=== PATIENT | male | born 1960 | race African-American/Black ===

== ENCOUNTER → 2020-07-21 14:01 | Outpatient (CLI) | payer BC, SELFPAY ==
--- NOTE | ~2020-07-21 | XR_ITS ---
EXAMINATION: XR knee LT min 4V, XR knee RT min 4V DATE: 07/21/2020 14:41 INDICATION: Bilateral knee pain TECHNIQUE: 1. Weight bearing anteroposterior and Hammond, sunrise, and flexed lateral views of the left knee w ere obtained. 2. Weight bearing anteroposterior and Hammond, sunrise, and flexed lateral views of the right knee were obtained COMPARISON: None. FINDINGS: No fractures. Minimal bilateral genu varum with severe joint space narrowing in the medial compartmen ts of the right knee on both the standing AP and Hammond images and moderate to severe joint space narrowing the medial compartment of the left knee. Relatively preserved joint space with small margin al osteophytes in the lateral and patellofemoral compartments of both knees. Soft tissues are unremar kable. No joint effusion/layering lipohemarthrosis identified at the left or right knee. IMPRESSION: 1. Relatively symmetric medial compartment predominant osteoarthritis of both knees, severe at the ri ght medial compartment and moderate to severe at the left medial compartment. Reviewed, dictated and finalized at location A. IMPRESSION: 1. Relatively symmetric medial compartment predominant osteoarthritis of both k nees, severe at the right medial compartment and moderate to severe at the left medial compartment.
== END ==
DX: M25.562 Pain in left knee (principal); M25.561 Pain in right knee; M17.0 Bilateral primary osteoarthritis of knee
CPT/HCPCS: 73564

== ENCOUNTER 2020-11-19 21:36 | Emergency (ER) | payer BC, SELFPAY ==
[2020-11-19 22:02] VITALS: BP 130/80; PULSE 103; RESP 18; TEMP 37.9; O2SAT 97
[2020-11-20] MEDS: ACETAMINOPHEN 325 MG TABLET 650 MG PO (02:51)
--- NOTE | 2020-11-20 03:07 | ED.FEVER ---
HPI - Fever General Chief Complaint: Fever Stated Complaint: Fever, ST Time Seen by Provider: 11/20/20 01:55 History of Present Illness HPI Narrative: Patient is a 60-year-old male who presents ER with fever. Ongoing over the last day. Associate with cough that is been going on for last week. He has sinus congestion. No loss of taste or smell. No known Covid contacts. He is vaccinated. has had an illness as well. She was never swabbed. Related Data Allergies Allergy/AdvReac Type Severity Reaction Status Date / Time No Known Allergies Allergy Verified 11/19/20 22:07 Review of Systems Constitutional: Constitutional: Reports chills and Reports fever(s) ENT: Denies dysphagia, Reports nasal congestion and Reports sore throat Respiratory: Respiratory: Denies chest congestion, Reports cough, Denies dyspnea and Denies wheezing Gastrointestinal: Gastrointestinal: Denies abdominal pain, Denies nausea and Denies vomiting PMFSH Past Medical History Medical History (Updated 11/20/20 @ 03:11 by Nolberto Toth MD) Healthy adult male Surgical History Surgical History (Updated 11/20/20 @ 03:09 by Nolberto Toth MD) No history of previous surgery Exam Narrative: GENERAL: Well-appearing, well-nourished, and in no acute distress. HEAD: Normocephalic, atraumatic. ENT: Mucous membranes moist. Normal-appearing posterior oropharynx without hypertrophy or exudate, uvula midline and nonedematous. NECK: Supple. CHEST: Clear to auscultation. No respiratory distress. HEART: Regular rate and rhythm. Normal peripheral pulses. NEURO: Alert and oriented x3. PSYCH: Normal mood and affect. 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 Swab for Covid. Self isolate at home. Vital Signs Vital signs: Vital Signs Temperature 100.3 F H 11/19/20 22:02 Pulse Rate 103 H 11/19/20 22:02 Respiratory Rate 18 11/19/20 22:02 Blood Pressure 130/80 11/19/20 22:02 Pulse Oximetry 97 11/19/20 22:02 Temperature 100.3 F H 11/19/20 22:02 Pulse Rate 103 H 11/19/20 22:02 Respiratory Rate 18 11/19/20 22:02 Blood Pressure 130/80 11/19/20 22:02 Pulse Oximetry 97 11/19/20 22:02 MDM - Fever Lab Data Labs: Lab Results 11/20/20 Range/Units 02:42 SARS-CoV-2 RNA (RT-PCR) Pending Strep Screen Presumptive Negative *(Reference Range: Negative)* Discharge Plan Discharge Clinical Impression: Viral infection, Person under investigation for COVID-19 Patient Disposition: Home, Self-Care Condition: Stable Instructions: Viral Syndrome (ED) Additional Instructions: Home return to the ER if you cannot keep down food or water, you have chest pain or shortness of breath, you lose consciousness. Your strep test was negative. You were swabbed for Covid and you should self isolate at home until you receive a negative test. Take Tylenol or ibuprofen as needed for fever. Use Mucinex and Flonase for sinus congestion. Prescriptions: New pseudoephedrine-guaifenesin [Mucus D] 60-600 mg tablet extended release 12 hr 1 tablet PO BID PRN (Reason: cold symptoms) Qty: 14 RF: 0 fluticasone propionate [Flonase Allergy Relief] 50 mcg/actuation spray,suspension 1 spray intranasal DAILY Qty: 16 RF: 0 Follow-up/Referrals: Dean Florez MD [Physician] - 1 Week UNKNOWN,DOCTOR [Primary Care Provider] -
[2020-11-20 03:57] VITALS: BP 115/76; PULSE 83; RESP 18; TEMP 37.2; O2SAT 95
[2020-11-20 17:27] LABS: SARS-CoV-2 RNA PCR Negative
== END 2020-11-20 03:58 | disposition home or self-care (01) ==
PROVIDERS: Emergency Provider Emergency Medicine
DX: B34.9 Viral infection, unspecified (principal); Z20.822 Contact with and (suspected) exposure to COVID-19
CPT/HCPCS: 87081; 87880; 99283; A9270; C9803; U0003; U0005

== ENCOUNTER → 2020-12-02 11:51 | Outpatient (CLI) | payer BC, SELFPAY ==
--- NOTE | ~2020-12-02 | XR_ITS ---
EXAMINATION: XR wrist RT min 3V DATE: 12/02/2020 12:00 INDICATION: Right wrist pain TECHNIQUE: Posteroanterior, ulnar deviation, oblique, and lateral views of the right wrist were obtai rayna. COMPARISON: none FINDINGS: Bone alignment is normal. No fracture. Mild polyarticular osteoarthritis involving the majority of th e joints at the right wrist and visualized hand. There are a few subarticular lucencies including at the distal ulna, the proximal tip of the hamate and the ulnar side of the proximal pole of the scapho id which could represent degenerative subchondral cysts or erosions. Soft tissues are unremarkable. IMPRESSION: 1. Mild polyarticular osteoarthritis at the right hand and wrist with a few subarticular lucencies mo st likely degenerative subchondral cysts although differential would include erosion such as in the s etting of either crystalline arthropathy such as gout or other inflammatory arthritis. Reviewed, dictated and finalized at location A. IMPRESSION: 1. Mild polyarticular osteoarthritis at the right hand and wrist with a few sub articular lucencies most likely degenerative subchondral cysts although differe ntial would include erosion such as in the setting of either crystalline arthro norma such as gout or other inflammatory arthritis.
== END ==
PROVIDERS: PCP Internal Medicine Gastroenterology; Visit Provider Internal Medicine Gastroenterology
DX: M19.031 Primary osteoarthritis, right wrist (principal)
CPT/HCPCS: 73110

== ENCOUNTER → 2020-12-11 13:25 | Outpatient (CLI) | payer BC, SELFPAY ==
--- NOTE | ~2020-12-11 | XR_ITS ---
EXAMINATION: XR chest 2V 12/11/2020 13:40 INDICATION: Cough and shortness of breath. PROCEDURE: 2 view chest COMPARISON: No prior studies for comparison. FINDINGS: The lungs are clear. The cardiomediastinal silhouette is within normal limits. There are no pleural effusions. There is no pneumothorax suspected. IMPRESSION: 1: NO ACUTE CARDIOPULMONARY DISEASE. Reviewed, dictated and finalized at location B.
== END ==
PROVIDERS: PCP Internal Medicine Gastroenterology; Visit Provider Internal Medicine Gastroenterology
DX: R05.9 Cough, unspecified (principal); R06.02 Shortness of breath
CPT/HCPCS: 71046

== ENCOUNTER → 2021-01-26 10:09 | Outpatient (CLI) | payer BC, SELFPAY ==
--- NOTE | ~2021-01-26 | US_ITS ---
US renal BI 01/26/2021 10:42 Procedure: Realtime transabdominal ultrasound of the kidneys and bladder. Indication: Chronic kidney disease Comparison: No prior studies for comparison. Findings: Renal echotexture is normal bilaterally without hydronephrosis, contour deforming mass or r enal calculus. The right kidney measures 8.3 cm cm and left kidney measures 10.1 cm cm. There are sma ll right renal cysts, largest measuring 12 mm. Bladder within normal limits. Impression: 1: Right renal cyst measuring up to 12 mm. Otherwise, unremarkable renal ultrasound. Reviewed, dictated and finalized at location A. [employer] Impression: 1: Right renal cyst measuring up to 12 mm. Otherwise, unremarkable renal ultras ound.
== END ==
DX: I12.9 Hypertensive chronic kidney disease with stage 1 through stage 4 chronic kidney disease, or unspecified chronic kidney disease (principal); N18.31 Chronic kidney disease, stage 3a; N28.1 Cyst of kidney, acquired; N17.9 Acute kidney failure, unspecified; E55.9 Vitamin D deficiency, unspecified; R80.9 Proteinuria, unspecified
CPT/HCPCS: 76775

== ENCOUNTER 2021-05-30 15:22 | Outpatient (CLI) | payer BC, SELFPAY ==
--- NOTE | ~2021-05-30 | XR_ITS ---
EXAM: XR toe 1st LT min 2V HISTORY: GOUT COMPARISON: None available FINDINGS: Normal mineralization. Soft tissue swelling over the first MCP. Faint amorphous soft tissu e hyperdensity adjacent to the first MCP may represent early calcification. No fracture or dislocatio n. Mild degenerative changes at the first MCP. No abnormal soft tissue calcification or erosion. IMPRESSION: First MCP soft tissue swelling and possible soft tissue calcification which would be supportive but n ot diagnostic of diagnosis of gout. Reviewed, dictated and finalized at location K. IMPRESSION: First MCP soft tissue swelling and possible soft tissue calcification which wou ld be supportive but not diagnostic of diagnosis of gout.
== END 2021-05-30 15:23 ==
LOC: MICIMG 15:24
PROVIDERS: PCP Internal Medicine Gastroenterology; Visit Provider Internal Medicine Gastroenterology
DX: M10.9 Gout, unspecified (principal); M79.89 Other specified soft tissue disorders
CPT/HCPCS: 73660

== ENCOUNTER 2021-07-24 16:05 | Outpatient (CLI) | payer BC, SELFPAY ==
--- NOTE | ~2021-07-24 | XR_ITS ---
EXAMINATION: XR wrist RT min 3V INDICATION: Right wrist pain and swelling TECHNIQUE: Four views of the right wrist are obtained. COMPARISON: 12/02/2020 FINDINGS: Bone alignment is normal. There is no fracture. Polyarticular osteoarthritis persists witho ut significant change. The soft tissues are unremarkable. IMPRESSION: 1. Mild polyarticular osteoarthritis without significant change. Reviewed, dictated and finalized at location F.
== END 2021-07-24 16:06 ==
PROVIDERS: PCP Internal Medicine Gastroenterology; Visit Provider Internal Medicine Gastroenterology
DX: R52 Pain, unspecified (principal); R06.9 Unspecified abnormalities of breathing
CPT/HCPCS: 73110

== ENCOUNTER 2021-09-09 00:16 | Emergency (ER) | payer BC, SELFPAY ==
[2021-09-09 00:18] VITALS: BP 191/97; PULSE 71; RESP 18; TEMP 36.6; O2SAT 100
[2021-09-09 00:32] VITALS: PULSE 80; RESP 13; O2SAT 99
[2021-09-09 00:34] VITALS: BP 176/102; PULSE 69; RESP 13; O2SAT 100
[2021-09-09 00:53] VITALS: PULSE 68; RESP 20; O2SAT 100
[2021-09-09 01:03] VITALS: PULSE 69; RESP 24; O2SAT 100
--- NOTE | 2021-09-09 01:06 | ED.GENADULT ---
HPI - General Adult General Chief complaint: Recheck/Abnormal Lab/Rx Stated complaint: htn 185/108 Time Seen by Provider: 09/09/21 00:46 History of Present Illness HPI narrative: Patient is a 61-year-old gentleman who presents to the emergency department with chief complaint of hypertension. Patient reports that he checked his blood pressure this evening and it was elevated. The patient denies chest pain denies shortness of breath denies focal neurological deficit denies headache. The patient states that he was concerned because his blood pressure has been fairly uncontrolled lately and decided to come to the emergency department. Upon arrival to the emergency department patient states he feels fine and has no complaints other than his numeric value of his blood pressure Related Data Home Medications Medication Instructions Recorded Confirmed allopurinol 300 mg tablet 300 mg PO DAILY 09/09/21 09/09/21 aspirin 81 mg PO DAILY 09/09/21 09/09/21 indomethacin 25 mg capsule 50 mg PO TID 09/09/21 09/09/21 losartan 100 tablet 09/09/21 mg-hydrochlorothiazide 25 mg tablet metoprolol tartrate 50 mg tablet tablet 09/09/21 pantoprazole 40 mg tablet,delayed 40 mg PO DAILY 09/09/21 09/09/21 release tamsulosin 0.4 mg capsule 1 cap PO DAILY 09/09/21 09/09/21 tramadol 50 mg tablet 50 mg PO PRN PRN Pain 09/09/21 09/09/21 Allergies Allergy/AdvReac Type Severity Reaction Status Date / Time No Known Allergies Allergy Verified 09/09/21 00:24 Review of Systems Review of Systems: A 10 system review of systems was completed on the patient and is negative except for what is stated in the HPI. Nursing and ancillary documentation was reviewed. [facility] Past Medical History Medical History Healthy adult male Surgical History Surgical History No history of previous surgery Exam Narrative: GENERAL: Well-appearing, well-nourished, and in no acute distress. HEAD: Normocephalic, atraumatic. EYES: PERRLA and EOMI. ENT: Nares clear, no rhinorrhea or epistaxis. Mucous membranes moist. NECK: Supple. CHEST: Clear to auscultation. No respiratory distress. HEART: Regular rate and rhythm. No murmur heard. Normal peripheral pulses. ABDOMEN: Soft, nontender, nondistended, normal active bowel sounds. EXTREMITIES: Normal range of motion. No edema. SKIN: Warm, dry, no rash. NEURO: No focal deficits. Alert and oriented x3. PSYCH: Normal mood and affect. Course Course Emergency Course: At this time the patient is completely asymptomatic in the emergency department and showing no signs of hypertensive crisis. Patient's diastolic is below 100 at this time the patient does not warrant emergent laboratory testing and was instructed to keep a daily blood pressure log and follow-up with his primary care physician Vital Signs Vital signs: Vital Signs Temperature 36.6 C 09/09/21 00:18 Pulse Rate 71 09/09/21 00:18 Respiratory Rate 18 09/09/21 00:18 Blood Pressure 191/97 H 09/09/21 00:18 Pulse Oximetry 100 09/09/21 00:18 Oxygen Delivery Room Air 09/09/21 00:18 Temperature 36.6 C 09/09/21 00:18 Pulse Rate 71 09/09/21 00:18 Respiratory Rate 18 09/09/21 00:18 Blood Pressure 191/97 H 09/09/21 00:18 Pulse Oximetry 100 09/09/21 00:18 Oxygen Delivery Room Air 09/09/21 00:18 Medical Decision Making Vital Signs Vital Signs: Vital Signs Temperature 36.6 C 09/09/21 00:18 Pulse Rate 71 09/09/21 00:18 Respiratory Rate 18 09/09/21 00:18 Blood Pressure 191/97 H 09/09/21 00:18 Pulse Oximetry 100 09/09/21 00:18 Oxygen Delivery Room Air 09/09/21 00:18 Temperature 36.6 C 09/09/21 00:18 Pulse Rate 71 09/09/21 00:18 Respiratory Rate 18 09/09/21 00:18 Blood Pressure 191/97 H 09/09/21 00:18 Pulse Oximetry 100 09/09/21 00:18 Oxygen Delivery Room Air
[2021-09-09 01:26] VITALS: BP 163/109; PULSE 65; RESP 15; O2SAT 99
== END 2021-09-09 01:35 | disposition home or self-care (01) ==
LOC: ANHED 01:20
PROVIDERS: Emergency Provider Emergency Medicine; PCP Internal Medicine Gastroenterology
DX: I10 Essential (primary) hypertension (principal); Z79.82 Long term (current) use of aspirin
CPT/HCPCS: 99281

== ENCOUNTER 2022-09-23 17:58 | Observation (INO) | payer OTHER, SELFPAY ==
--- NOTE | ~2022-09-23 | CT_ITS ---
EXAMINATION: CT brain wo con DATE: 09/23/2022 21:58 INDICATION: Dizziness, nausea vomiting . TECHNIQUE: Computed tomography (CT) of the head was performed without intravenous contrast. The mA wa s adjusted according to patient size. Iterative reconstruction technique was employed. The dose-lengt h product was 605.33 mGy-cm. COMPARISON: None. FINDINGS: No acute intracranial hemorrhage or extra-axial fluid collection. No hydrocephalus, mass, or herniation. No acute ischemic infarct. Unremarkable dural venous sinus attenuation. No acute osseous abnormality. The aerated spaces are clear. Mild atrophy and chronic white matter change. Atherosclerotic intracranial calcification. IMPRESSION: No acute intracranial process. Reviewed, dictated and finalized at location K.
--- NOTE | ~2022-09-23 | MR_ITS ---
EXAMINATION: MR brain/brain stem wo/w con DATE: 09/24/2022 11:52 INDICATION: Dizziness. Nystagmus. TECHNIQUE: Magnetic resonance imaging (MRI) of the brain and brainstem was performed without and with 20 mL MultiHance intravenous contrast. COMPARISON: Head CT 09/23/2022 FINDINGS: There are scattered areas of nonspecific increased T2-weighted signal intensity in the cere bral white matter. There is no intracranial hemorrhage, acute infarction, or abnormal intracranial ma ss lesion. The ventricles are normal in size. The orbits are normal. The paranasal sinuses are clear. The mastoid air cells are normal. IMPRESSION: 1. Mild nonspecific cerebral white matter disease, which likely represents chronic small vessel ische jose f disease. Reviewed, dictated and finalized at location A. IMPRESSION: 1. 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
--- NOTE | ~2022-09-23 | XR_ITS ---
EXAMINATION: XR chest 2V DATE: 09/25/2022 13:02 INDICATION: Shortness of breath. TECHNIQUE: Frontal and lateral views of the chest were obtained. COMPARISON: Chest single view 09/23/2022, 12/11/2020 FINDINGS: There are airspace opacities at lung base. A calcified right lung nodule is consistent with old granulomatous disease. No pleural effusion or pneumothorax. The heart size is normal. The brachi ocephalic vessels are tortuous. IMPRESSION: 1. Worsened airspace opacities at left lung base, consistent with atelectasis versus pneumonia. Reviewed, dictated and finalized at location B. IMPRESSION: 1. Worsened airspace opacities at left lung base, consistent with atelectasis v ersus pneumonia.
--- NOTE | ~2022-09-23 | XR_ITS ---
EXAMINATION: XR chest 1V Exam Date/Time: 09/23/2022 21:57 CDT HISTORY: Weakness- DIZZINESS Comparison: 12/11/2020. RESULT: Lines, tubes, and devices: None. Lungs and pleura: Patient is rotated slightly to the right. Streaky left basilar subsegmental airspa ce disease. Calcified right upper lung granuloma. Cardiomediastinal silhouette: Stable. Other: No acute osseous or upper abdominal finding. IMPRESSION: Subsegmental left basilar atelectasis/consolidation. Reviewed, dictated and finalized at location K.
--- NOTE | ~2022-09-23 | US_ITS ---
EXAMINATION: US carotid duplex BI DATE: 09/24/2022 11:32 INDICATION: Dizziness. TECHNIQUE: Grayscale, color Doppler, and pulsed Doppler images of the cervical carotid arteries were obtained. The degree of vessel stenosis is placed in one of the following categories: normal, <50%, 5 0-69%, >=70% but less than near-occlusion, near-occlusion, or total occlusion. Note that percent sten osis relative to normal distal artery lumen diameter is indirectly measured from velocity measurement s as described by Jhony, et al. Radiology 2003; 229:340-346. COMPARISON: None. FINDINGS: RIGHT: The right common carotid artery (CCA) peak systolic velocity (PSV) is 67 cm/s. The right internal car otid artery (ICA) PSV is 69 cm/s. The right ICA end-diastolic velocity (EDV) is 21 cm/s. The right IC A/CCA PSV ratio is 1.0. Grayscale and color Doppler images yield an estimate of <50% diameter reducti on from plaque in the ICA. There is antegrade flow in the right vertebral artery. LEFT: The left CCA PSV is 87 cm/s. The left ICA PSV is 91 cm/s. The left ICA EDV is 24 cm/s. The left ICA/C CA PSV ratio is 1.0. Grayscale and color Doppler images yield an estimate of <50% diameter reduction from plaque in the ICA. There is antegrade flow in the left vertebral artery. IMPRESSION: 1. <50% stenosis in the right internal carotid artery. 2. <50% stenosis in the left internal carotid artery. Reviewed, dictated and finalized at location A.
[2022-09-23 18:10] VITALS: BP 180/79; PULSE 72; RESP 16; TEMP 36.4; O2SAT 96
--- NOTE | 2022-09-23 18:11 | ECG_ITS ---
Measurements Intervals [place] Rate: 63 P: 29 AL: 223 QRS: -19 QRSD: 90 T: 28 QT: 430 QTc: 442 Interpretive Statements SINUS RHYTHM WITH FIRST DEGREE AV BLOCK POSSIBLE LEFT ATRIAL ENLARGEMENT LEFT VENTRICULAR HYPERTROPHY NONSPECIFIC T-WAVE ABNORMALITY- ANTERIOR LEADS BASELINE ARTIFACT- I, II, III, AVR, AVL BORDERLINE ECG NO PREVIOUS ECG AVAILABLE FOR COMPARISON Electronically Signed On 09-23-2022 21:25:10 CDT by Godfrey Multani D.O.
[2022-09-23 20:48] VITALS: BP 190/94; PULSE 80; RESP 18; TEMP 36.5; O2SAT 97
[2022-09-23 21:08] LABS: Appearance Urine Clear (Clear); Bacteria Urine None Seen /hpf; Bilirubin Urine Negative (Negative); Blood Urine Negative (Negative); Color Urine Yellow (Yellow); Glucose Urine UA Negative (Negative); Ketones Urine Negative (Negative); Leukocyte Esterase Ur 2+ LEU/UL (Negative); Nitrate Urine Negative (Negative); Non Pathogenic Casts 0-2; Protein Urine 2+ mg/dL (Negative); RBC Urine 0-2 /hpf (0-2); Specific Grav Ur 1.015 (1.001-1.035); Squamous Epithelial Cell Urine None seen /hpf (Few); WBC Urine 51-100 /hpf; pH Urine 7.5 (5.0-9.0)
[2022-09-23 21:13] LABS: Add Urine Microscopic? YES
[2022-09-23 21:32] LABS: Basophils Percent Auto 0.2 % (0.2-1.2); Eosinophils Percent Auto 0.2 % (0-4.4); Hematocrit 39.9 % (42.0-52.0); Hemoglobin 12.9 g/dL (14.0-18.0); Immature Granulocyte Absolute 0.03 K/mm3 (0.00-0.031); Immature Granulocyte Percent A 0.3 % (0-0.5); Lymphocytes Absolute Auto 1.24 K/mm3 (0.9-3.2); Mean Corpuscular HGB Conc 32.3 g/dl (32-36); Mean Corpuscular Hemoglobin 32.4 pg (26-34); Mean Corpuscular Volume 100.3 fl (80-100); Mean Platelet Volume 10.7 fl (7.4-10.4); Monocytes Absolute Auto 0.5 K/mm3 (0.1-0.6); Monocytes Percent Auto 5.2 % (2.6-8.5); Neutrophils Absolute Auto 7.8 K/mm3 (1.3-6.7); Neutrophils Percent Auto 81.1 % (45.5-73.1); Platelet Count Result 156 k/mm3 (150-375); Red Blood Count 3.98 M/mm3 (4.6-6.20); Red Cell Distribution Width 13.5 % (11.5-14.5); White Blood Count 9.6 K/mm3 (4.5-10.0)
[2022-09-23] MEDS: PROCHLORPERAZINE EDISYLATE 10 MG/2 ML VIAL IV PUSH (21:32)
[2022-09-23] MEDS: SODIUM CHLORIDE 0.9% IV 1,000 ML 999 ML IV CONT (21:32)
[2022-09-23] MEDS: diphenhydrAMINE HCl INJ 50 MG/ML VIAL 25 MG IV PUSH (21:32)
[2022-09-23 21:44] LABS: Alanine Aminotransferase 44 U/L (6-50); Albumin Level 4.6 g/dL (3.5-5.1); Alkaline Phosphatase 66 U/L (38-126); Anion Gap 4 mmol/L (8-16); Aspartate Amino Transferase 45 U/L (17-59); Bilirubin,Total 0.6 mg/dL (0.2-1.3); Blood Urea Nitrogen 17 mg/dL (9-20); Calcium 9.5 mg/dL (8.4-10.2); Carbon Dioxide 32 mmol/L (22-30); Chloride 99 mmol/L (98-107); Estimated CRCL calculation 76 ml/min; Estimated Glomerular Filt Rate > 60; Glucose 139 mg/dL (65-110); Lipase 118 U/L (23-300); Magnesium 1.2 mg/dL (1.6-2.3); Potassium 3.8 mmol/L (3.4-5.0); Sodium 135 mmol/L (137-145)
[2022-09-23 21:45] LABS: Lactic Acid Reflex 1.6 mmol/L (0.7-2.0)
[2022-09-23 21:56] LABS: Troponin I < 0.012 ng/mL (0.000-0.034)
[2022-09-23 23:15] VITALS: BP 191/99; PULSE 77; RESP 12; O2SAT 98
[2022-09-23] MEDS: MAGNESIUM SULF 2 GM/WATER 50ML 2 GM/50 ML BAG IVPB (23:15)
[2022-09-24] VITALS (19 sets, daily range): BP systolic 120–210; BP diastolic 60–114; PULSE 72–109; RESP 12–20; TEMP 36.3–36.9; O2SAT 96–100
[2022-09-24] MEDS: diazePAM INJ (*CRX) 10 MG/2 ML SYRINGE 5 MG IV PUSH (00:26)
[2022-09-24] MEDS: MECLIZINE HCL 25 MG TABLET PO (00:27)
[2022-09-24] MEDS: hydrALAZINE HCL 20 MG/ML VIAL 10 MG IV PUSH ×4 (00:27→12:14)
--- NOTE | 2022-09-24 01:30 | ED.GENADULT ---
HPI - General Adult General Chief complaint: Dizziness Stated complaint: DIZZINESS N/V SINCE TODAY Time Seen by Provider: 09/23/22 21:08 History of Present Illness HPI narrative: Patient is 62-year-old gentleman who presents the emergency department chief complaint of dizziness and nausea and vomiting. Patient reports that around 3 PM today he started having sudden onset of nausea vomiting and dizziness. Patient states he feels as though the room is spinning and reports that when he looks at things they are moving. The patient reports no chest pain denies weakness in his arms or legs. Related Data Home Medications Medication Instructions Recorded Confirmed allopurinol 300 mg tablet 300 mg PO DAILY 09/09/21 09/09/21 aspirin 81 mg PO DAILY 09/09/21 09/09/21 indomethacin 25 mg capsule 50 mg PO TID 09/09/21 09/09/21 losartan 100 1 tablet PO DAILY 09/09/21 09/09/21 mg-hydrochlorothiazide 25 mg tablet metoprolol tartrate 50 mg tablet 50 mg PO DAILY 09/09/21 09/09/21 pantoprazole 40 mg tablet,delayed 40 mg PO DAILY 09/09/21 09/09/21 release tamsulosin 0.4 mg capsule 1 cap PO DAILY 09/09/21 09/09/21 tramadol 50 mg tablet 50 mg PO PRN PRN Pain 09/09/21 09/09/21 Allergies Allergy/AdvReac Type Severity Reaction Status Date / Time No Known Allergies Allergy Verified 09/09/21 00:24 Review of Systems Review of Systems: A 10 system review of systems was completed on the patient and is negative except for what is stated in the HPI. Nursing and ancillary documentation was reviewed. [facility] Past Medical History Medical History Healthy adult male Surgical History Surgical History No history of previous surgery Exam Narrative: GENERAL: Well-appearing, well-nourished, and in no acute distress. HEAD: Normocephalic, atraumatic. EYES: PERRLA and EOMI. horizontal nystagmus present ENT: Nares clear, no rhinorrhea or epistaxis. Mucous membranes moist. NECK: Supple. CHEST: Clear to auscultation. No respiratory distress. HEART: Regular rate and rhythm. No murmur heard. Normal peripheral pulses. ABDOMEN: Soft, nontender, nondistended, normal active bowel sounds. EXTREMITIES: Normal range of motion. No edema. SKIN: Warm, dry, no rash. NEURO: No focal deficits. Alert and oriented x3. Horizontal nystagmus present on ocular exam PSYCH: Normal mood and affect. Course Vital Signs Vital signs: Vital Signs Temperature 36.4 C 09/23/22 18:10 Pulse Rate 72 09/23/22 18:10 Respiratory Rate 16 09/23/22 18:10 Blood Pressure 180/79 H 09/23/22 18:10 Pulse Oximetry 96 09/23/22 18:10 Temperature 36.5 C 09/23/22 20:48 Pulse Rate 80 09/24/22 00:42 Respiratory Rate 15 09/24/22 00:42 Blood Pressure 198/113 H 09/24/22 00:42 Pulse Oximetry 98 09/24/22 00:42 Oxygen Delivery Room Air 09/23/22 20:48 Medical Decision Making [facility] Narrative Medical decision making narrative: Differential diagnosis includes electrolyte abnormality, UTI, infection, CVA, vertigo CT head showed no evidence of acute abnormality Chest x-ray showed atelectasis Laboratory studies were obtained which showed a normal CBC magnesium was low at 1.2 the patient had evidence of a UTI with 2+ leukocyte Estrace and 51 to 150 cc in the urine. Patient was started on Rocephin for the UTI Patient is still continued to have horizontal nystagmus and is still having symptoms. The case was discussed with the hospitalist the patient was admitted for further care Vital Signs Vital Signs: Vital Signs Temperature 36.4 C 09/23/22 18:10 Pulse Rate 72 09/23/22 18:10 Respiratory Rate 16 09/23/22 18:10 Blood Pressure 180/79 H 09/23/22 18:10 Pulse Oximetry 96 09/23/22 18:10 Temperature 36.5 C 09/23/22 20:48 Pulse Rate 80 09/24/22 00:42 Respiratory Rate 15 09/24/22 00:42 Blood
--- NOTE | 2022-09-24 02:01 | PM.IMHP ---
H&P: HPI History of Present Illness Date/Time: 09/24/22 02:01 Chief Complaint: Dizziness Narrative: This is a 62-year-old male with past medical history significant for hypertension, gout, benign prostatic hyperplasia. Patient was at his work when he failed add easy coma lightheaded, had nausea, vomiting his came to get him on when home through the course of today patient progressed to feel worse on have a new lead revision on ice will on a will to focal is in emergency room patient was found to have a blood pressure systolic in the 200s. Patient states that he took his blood pressure medication at home 1:00 p.m. today, has had chills, pain or burning with urination for the last 2 weeks or so, patient had surgery for benign prostatic hyperplasia in June of this year. Preliminary workup was also significant for you for urine analysis showed numerous WBCs present, a CT of the head was reported as: EXAMINATION: CT brain wo con DATE: 09/23/2022 21:58 INDICATION: Dizziness, nausea vomiting . TECHNIQUE: Computed tomography (CT) of the head was performed without intravenous contrast. The mA was adjusted according to patient size. Iterative reconstruction technique was employed. The dose-length product was 605.33 mGy-cm. COMPARISON: None. FINDINGS: No acute intracranial hemorrhage or extra-axial fluid collection. No hydrocephalus, mass, or herniation. No acute ischemic infarct. Unremarkable dural venous sinus attenuation. No acute osseous abnormality. The? aerated spaces are clear. Mild atrophy and chronic white matter change. Atherosclerotic intracranial calcification. IMPRESSION:? No acute intracranial process. EXAMINATION:? XR chest 1V Exam Date/Time:? 09/23/2022 21:57 CDT HISTORY: Weakness- DIZZINESS ? Comparison:? 12/11/2020. RESULT: Lines, tubes, and devices:? None. Lungs and pleura:? Patient is rotated slightly to the right. Streaky left basilar subsegmental airspace disease. Calcified right upper lung granuloma. Cardiomediastinal silhouette:? Stable. Other:? No acute osseous or upper abdominal finding. ? IMPRESSION: Subsegmental left basilar atelectasis/consolidation. Review of Systems Review of Systems: Blurry vision coma dizziness, lightheadedness, nausea, vomiting, chills, pain or burning with urination Constitutional: Constitutional: Reports chills, Denies fatigue, Denies fever(s), Denies frequent falls, Denies night sweats and Denies poor appetite Eyes: Eyes: Reports blurry vision ENT: Denies dysphagia, Reports vertigo, Reports dizziness, Denies nasal congestion, Denies nasal discharge, Denies nasal obstruction and Denies odynophagia Cardiovascular: Cardiovascular: Denies chest pain at rest, Denies pedal edema, Denies leg edema, Reports lightheadedness, Denies radiating jaw, neck or arm pain, Denies palpitations and Denies dyspnea Respiratory: Respiratory: Denies chest congestion, Denies cough, Denies excessive phlegm production and Denies dyspnea on exertion Gastrointestinal: Gastrointestinal: Denies abdominal pain, Reports nausea and Reports vomiting Genitourinary: Genitourinary: Reports dysuria Musculoskeletal: Musculoskeletal: Denies back pain and Denies myalgias Integumentary/Breasts: Skin/Breast: Denies rash Neurologic: Reports confusion, Reports vertigo, Reports dizziness, Denies focal weakness and Denies Sensory deficit (Neuro) Psychiatric: Psychiatric: Reports no additional psychiatric complaints and Reports as per HPI Endocrine: Endocrine: Denies cold intolerance, Denies excessive sweating, Denies fatigue, Denies heat intolerance, Denies polyphagia, Denies polyuria and Denies palpitations Hematologic/Lymphatic: Hematologic/Lymphatic: Reports no additional hematologic/lymphatic complaints and Reports as per HPI Allergic/Immunologic: Allergic/Immunologic: Reports no additional allergic/immunologic complaints and Reports as per HPI [facility] Past Medical History Me
[2022-09-24] MEDS: MAGNESIUM SULFATE 3GM/D5W100ML 3 GM/100 ML BAG IVPB (03:30)
[2022-09-24] MEDS: LOSARTAN POTASSIUM 100 MG TABLET PO (08:43)
[2022-09-24] MEDS: ACETAMINOPHEN 325 MG TABLET 650 MG PO (12:13)
[2022-09-24] MEDS: AZITHROMYCIN 250 MG TABLET 500 MG PO (12:13)
[2022-09-25] VITALS (12 sets, daily range): BP systolic 150–205; BP diastolic 68–94; PULSE 68–99; RESP 18–20; TEMP 36.5–37.2; O2SAT 97–100
[2022-09-25 05:04] LABS: Basophils Percent Auto 0.1 % (0.2-1.2); Eosinophils Absolute Auto 0.1 K/mm3 (0-0.3); Eosinophils Percent Auto 1.5 % (0-4.4); Hematocrit 40.2 % (42.0-52.0); Hemoglobin 13.4 g/dL (14.0-18.0); Immature Granulocyte Absolute 0.03 K/mm3 (0.00-0.031); Immature Granulocyte Percent A 0.4 % (0-0.5); Lymphocytes Absolute Auto 1.91 K/mm3 (0.9-3.2); Lymphocytes Percent Auto 23.9 % (18.3-44.2); Mean Corpuscular HGB Conc 33.3 g/dl (32-36); Mean Corpuscular Hemoglobin 32.8 pg (26-34); Mean Corpuscular Volume 98.3 fl (80-100); Monocytes Absolute Auto 0.8 K/mm3 (0.1-0.6); Monocytes Percent Auto 9.4 % (2.6-8.5); Neutrophils Absolute Auto 5.2 K/mm3 (1.3-6.7); Neutrophils Percent Auto 64.7 % (45.5-73.1); Platelet Count Result 172 k/mm3 (150-375); Red Blood Count 4.09 M/mm3 (4.6-6.20); Red Cell Distribution Width 13.7 % (11.5-14.5)
[2022-09-25 05:16] LABS: Potassium 3.5 mmol/L (3.4-5.0)
[2022-09-25 05:24] LABS: Anion Gap 5 mmol/L (8-16); Blood Urea Nitrogen 17 mg/dL (9-20); Calcium 9.2 mg/dL (8.4-10.2); Carbon Dioxide 29 mmol/L (22-30); Chloride 99 mmol/L (98-107); Estimated CRCL calculation 76 ml/min; Estimated Glomerular Filt Rate > 60; Glucose 103 mg/dL (65-110); Sodium 133 mmol/L (137-145)
--- NOTE | 2022-09-25 06:00 | ECHO_ITS ---
Patient Info Name: Anish Adams Age: 62 years : 1960 Gender: Male Ht: 65 in Wt: 240 lbs BSA: 2.29 m2 HR: 74 bpm BP: 159 / 78 mmHg Heart Rhythm: Sinus Rhythm Technical Quality: Good Exam Date: 09/25/2022 11:33 AM Exam Location: [facility] Patient Status: Outpatient Admit Date: 09/24/2022 Staff Ordering Physician: Judson Go MD Bookkeeping Teacher: Gustabo Headley RDCS Attending Provider: Meagan Lock MD Referring Physician: Abbi JOHSNON; Exam Type: CA echo doppler color flow Study Info Indications - dizziness Complete two-dimensional, color flow and Doppler transthoracic echocardiogram is performed. Summary 1. Complete two-dimensional, color flow and Doppler transthoracic echocardiogram is performed. 2. Normal left ventricular size with moderate concentric hypertrophy and a degree of asymmetric septal hypertrophy measuring 1.8 cm. Good systolic function of all segments with ejection fraction 60-65%. Grade 2 diastolic dysfunction is noted. No evidence of outflow tract obstruction. 3. Left atrial chamber dimension is moderately enlarged. 4. Moderate aortic valve sclerosis without stenosis. 5. Mild aortic insufficiency. 6. Calcified aortic root. 7. Normal sinus rhythm. Left Ventricle Left ventricular chamber dimension is normal. Left ventricular systolic function is normal, estimated at 60-65%. There is moderately increased left ventricular wall thickness. Left ventricular septal wall motion is normal. The left ventricular diastolic function is grade II diastolic dysfunction. Right Ventricle Right ventricular chamber dimension is normal. Right ventricular systolic function is normal. Left Atria Left atrial chamber dimension is moderately enlarged. Right Atria Right atrial chamber dimension is normal. Aortic Valve The aortic valve is trileaflet. There is moderate aortic valve sclerosis. There is no aortic valve stenosis. There is mild aortic valve regurgitation. Pulmonic Valve The pulmonic valve is normal. There is no pulmonic valve stenosis. There is trace pulmonic regurgitation. Mitral Valve The mitral valve has normal leaflets. There is no mitral valve stenosis. There is no mitral valve regurgitation. Tricuspid Valve The tricuspid valve leaflets are normal. There is no significant tricuspid valve stenosis. There is trace tricuspid valve regurgitation. No pulmonary hypertension, estimated pulmonary arterial systolic pressure is 12 mmHg. Pericardium/Pleural The pericardium appears normal. There is no pericardial effusion. Inferior Vena Cava Normal inferior vena cava with >50% collapse upon inspiration consistent with Empty right atrial pressure, 10 mmHg. Aorta The aortic root size at the sinus of Valsalva is normal. The prox ascending aorta size is normal. There is mild aortic atherosclerosis. Left Ventricular Outflow Tract Name Value Normal LVOT 2D LVOT Diameter 2.1 cm LVOT Doppler LVOT Peak Gradient 4 mmHg LVOT Mean Gradient 2 mmHg LVOT VTI 24 cm LVOT VTI/AV VTI Ratio 0.9 LVOT Stroke Volume
[2022-09-25] MEDS: ASPIRIN 81 MG CHEWABLE TABLET PO (10:06)
[2022-09-25] MEDS: allopurinoL 300 MG TABLET PO (10:06)
[2022-09-25] MEDS: METOPROLOL TARTRATE 50 MG TAB PO (10:07)
[2022-09-25] MEDS: AZITHROMYCIN 250 MG TABLET 500 MG PO (10:07)
[2022-09-25] MEDS: MULTIVITAMINS THERAPEUTIC TAB (*BKC) 1 TABLET PO (10:07)
[2022-09-25] MEDS: LOSARTAN POTASSIUM 100 MG TABLET PO (10:07)
[2022-09-25] MEDS: PANTOPRAZOLE 40 MG TABLET PO (10:08)
--- NOTE | 2022-09-25 12:39 | WPDNEURCNPN ---
Assessment and Plan Assessment and plan (1) Labyrinthitis: Code(s): H83.09 - Labyrinthitis, unspecified ear Status: Acute Plan labyrinth sign dysfunction with horizontal nystagmus on looking to the left side but negative MRI of the brain without any territory stroke even in the posterior circulation and also with normal Doppler carotid study treatment as planned Consult date: 09/25/22 HPI: Anish Adams is a 62 year old male Admitted to the hospital through the emergency room for the complaints of dizziness with nausea and vomiting and with the complaints of as if the room is spinning without associated any other generalized symptomatology. Patient has been taking multiple medications which included allopurinol 300 mg daily, aspirin 81 mg daily, indomethacin 25 mg each 2 tablets 3 times a day, losartan 100 mg daily metoprolol 50 mg daily pantoprazole 40 mg daily tamsulosin 1 capsule daily and tramadol on p.r.n. basis his initial vital signs were with blood pressure 180/79 so he was afebrile, a CT scan of the head was negative and a chest x-ray revealed mild atelectasis UA was abnormal and his physical examination in the emergency room was documented with horizontal nystagmus subsequent evaluation included the MRI of the brain which is negative , Doppler study of the carotid with less than 50% stenosis bilaterally. Review of Systems Review of Systems: All systems reviewed & are unremarkable except as noted in HPI and below PMFSH Past Medical History Medical History Healthy adult male Surgical History Surgical History No history of previous surgery Family History Family History (Updated 09/24/22 @ 09:22 by Asya Avila RN) Mother Hypertension Father Hypertension Social History Social History Smoking status: Never smoker Lack of Transportation: No Lack of Food: Never True Current Housing: I Have Housing Concerned About Future Housing: No Difficulty Paying Gas/Electric Bills: No Difficulty Paying for Meds: No Currently Unemployed: No Education: High School Diploma/GED Difficulty w/ Childcare or Family Care: No Spiritual care concerns: No Meds Home Medications and Allergies Home Medications Medication Instructions Recorded Confirmed Type allopurinol 300 mg tablet 300 mg PO DAILY 09/09/21 09/24/22 History aspirin 81 mg PO DAILY 09/09/21 09/24/22 History losartan 100 1 tablet PO DAILY 09/09/21 09/24/22 History mg-hydrochlorothiazide 25 mg tablet metoprolol tartrate 50 mg tablet 50 mg PO DAILY 09/09/21 09/24/22 History pantoprazole 40 mg tablet,delayed 40 mg PO DAILY 09/09/21 09/24/22 History release tramadol 50 mg tablet 50 mg PO PRN PRN Pain 09/09/21 09/24/22 History calcium cmb no.1-vit W4-X2-CG-B12 1 tablet PO DAILY 09/24/22 09/24/22 History 120 mg-1,000 unit-10 mg tablet multivitamin 1 tablet PO DAILY 09/24/22 09/24/22 History Allergies Allergy/AdvReac Type Severity Reaction Status Date / Time No Known Allergies Allergy Verified 09/09/21 00:24 Vital Signs Vital Signs - 24 hr 09/24/22 15:53 09/24/22 14:00 09/24/22 16:00 Temperature 36.9 C Pulse Rate 86 81 Respiratory Rate 18 Blood Pressure 151/68 H Pulse Oximetry 97 Oxygen Delivery Room Air 09/24/22 16:00 09/24/22 18:00 09/24/22 20:00 Temperature 36.3 C L Pulse Rate 103 H 109 H 91 Respiratory Rate 20 Blood Pressure 147/60 H Pulse Oximetry 98 Oxygen Delivery 09/24/22 20:00 09/24/22 20:00 09/24/22 22:00 Temperature Pulse Rate 91 92 91 Respiratory Rate 20 Blood Pressure Pulse Oximetry 98 Oxygen Delivery Room Air 09/24/22 23:40 09/25/22 00:00 09/25/22 00:00 Temperature 36.7 C Pulse Rate 77 77 74 Respiratory Rate 20 20 Blood Pressure 120/61 Pulse Oxi
--- NOTE | 2022-09-25 16:59 | PM.DS ---
DS: Admitting Diagnosis Discharge Date 09/25/22 Admitting Diagnosis Dizziness DS: Discharge Diagnosis Discharge Diagnosis (1) Hypertension: Code(s): I10 - Essential (primary) hypertension Status: Acute (2) Nausea & vomiting: Code(s): R11.2 - Nausea with vomiting, unspecified Status: Acute (3) AMS (altered mental status): Code(s): R41.82 - Altered mental status, unspecified Status: Acute (4) Pneumonia: Code(s): J18.9 - Pneumonia, unspecified organism Status: Acute (5) Labyrinthitis: Code(s): H83.09 - Labyrinthitis, unspecified ear Status: Acute DS: Summary Hospital Course Reason for hospitalization: 62-year-old male with HTN, gout, and benign prostatic hyperplasia here for dizziness. Please see H&P for details. Hospital Course: Patient presents with dizziness, nausea/vomiting. Blood pressure was elevated to as high as 210/114. EKG showing NSR with first degree AVB and nonspecific T wave changes. UA noted but UCx negative. BCx NGTD. CXR showing left basilar airspace disease. No fevers or cough. He was started on abx for possible PNA. Repeat CXR showing worsening left basilar airspace disease. CT mojgan showing no acute findings. Brain MR showing mild nonspecific cerebral white matter disease but no acute findings. Carotid US showing <50% stenosis of bilateral internal carotid arteries. Troponin negative x 1. LFTs normal. Mag low and was replaced. Sodium 135 felt related to his HCTZ. Neurology was consulted and felt the patient had labyrinthitis. Echo pending. He was treated for dizziness with IV compazine, benadryl and meclizine with improvement. BP remained elevated at times. He has been walking to the bathroom. Dizziness still occurring at times. Steroids for the labyrinthitis not pursued since his BP poorly controlled and he has ongoing treatment for PNA. Plan for outpatient vestibular therapy. Patient overall did well and was able to be discharged home on 09/25/22. Status at Discharge Cognitive/behavioral status at discharge: stable Time Spent with Patient Time attestation: Total time spent providing and/or coordinating discharge services:35 minutes Time spent: Greater than 30 minutes Exam Narrative: AF 98.5 183/90 75 18 98% ra Gen - NARD Chest - CTA bilaterally, nml RR CV - RRR S1/S2. Tele showing no significant dysrhythmias Abd - Soft, NT/ND, Positive BS Ext - No pedal edema Neuro - Alert and oriented x4. Nonfocal exam. Psych - Nml mood and affect Skin - Warm and dry DS: Data Data Completed and Pending Labs on day of discharge: Labs from last 24 hours 09/25/22 04:22 WBC 8.0 RBC 4.09 L Hgb 13.4 L Hct 40.2 L MCV 98.3 MCH 32.8 MCHC 33.3 RDW 13.7 Plt Count 172 MPV 11.0 H Immature Gran % (Auto) 0.4 Neut % (Auto) 64.7 Lymph % (Auto) 23.9 Sebastian % (Auto) 9.4 H Eos % (Auto) 1.5 Baso % (Auto) 0.1 L Lymph # (Auto) 1.91 Sebastian # (Auto) 0.8 H Eos # (Auto) 0.1 Baso # (Auto) 0.0 Abs Immat Gran (auto) 0.03 Absolute Neuts (auto) 5.2 Absolute Nucleated RBC 0.0 Nucleated RBC % 0.0 Sodium 133 L Potassium 3.5 Chloride 99 Carbon Dioxide 29 Anion Gap 5 L BUN 17 Creatinine 1.20 Estim Creat Clear Calc 76 Estimated GFR > 60 Glucose 103 Calcium 9.2 Preliminary micro results at discharge 09/24/22 04:17 Blood Culture - Preliminary Blood 09/24/22 04:17 Blood Culture - Preliminary Blood Discharge Plan Discharge Attending physician on discharge: Judson Ballesteros Consulting providers: Ramo Mo Discharging Clinician: Judson Ballesteros Anticipated Discharge Date/Time: 09/25/22 17:19 Patient Disposition: Home, Self-Care Activity: as tolerated Diet: heart healthy Discharge Instructions: Check blood pressure 1 to 2 times a day. Record and bring into your doctor for review. Call your doctor if your blood pressure is greater than 180/110. Please complete
--- NOTE | 2022-09-25 17:08 | PC.NURSE ---
Spoke with Dr. Ballesteros about the pt's blood pressure prior to discharge. Stated he was fine with not giving the pt his prn hydralazine and still discharging him.
[2022-09-25] MEDS: amLODIPine BESYLATE 2.5 MG TABLET PO (18:23)
--- NOTE | 2022-09-30 10:17 | PC.NURSE ---
Blood cultures are negative. Dr. Lesli hicks.
== END 2022-09-25 19:40 | disposition home or self-care (01) ==
LOC: ANHED 09-24 01:33 → ANHIMU 09-24 06:44
PROVIDERS: Admitting Provider Internal Medicine; Emergency Provider Emergency Medicine; PCP Internal Medicine Gastroenterology; Visit Provider Internal Medicine
DX: I11.9 Hypertensive heart disease without heart failure (principal); R11.2 Nausea with vomiting, unspecified; R41.82 Altered mental status, unspecified; J18.9 Pneumonia, unspecified organism; H83.09 Labyrinthitis, unspecified ear; N39.0 Urinary tract infection, site not specified; R91.8 Other nonspecific abnormal finding of lung field; E83.42 Hypomagnesemia; I44.0 Atrioventricular block, first degree; R06.02 Shortness of breath; J98.11 Atelectasis; I35.1 Nonrheumatic aortic (valve) insufficiency; I70.0 Atherosclerosis of aorta; R30.0 Dysuria; M10.9 Gout, unspecified; R90.82 White matter disease, unspecified; N40.0 Benign prostatic hyperplasia without lower urinary tract symptoms; Z79.82 Long term (current) use of aspirin; Z79.891 Long term (current) use of opiate analgesic; Z79.899 Other long term (current) drug therapy
CPT/HCPCS: 36415; 70450; 70553; 71045; 71046; 80048; 80053; 81001; 83605; 83690; 83735; 84484; 85025; 87040; 87086; 93005; 93306; 93880; 96365; 96366; 96367; 96375; 96376; 99285; A9270; A9577; G0378; J0360; J0696; J0780; J1200; J3360; J3475; J7030

== ENCOUNTER → 2023-02-28 15:18 | Outpatient (CLI) | payer OTHER, SELFPAY ==
--- NOTE | ~2023-02-28 | XR_ITS ---
XR knee RT min 4V DATE: 02/28/2023 15:39 INDICATION: Bilateral knee joint pain TECHNIQUE: 4 views COMPARISON: 07/01/2020 right knee FINDINGS: There is severe medial compartment joint space narrowing with [id number]. There is partic ular spurring at the medial and patellofemoral compartments and slightly at the lateral tibial patell a. Mild suprapatellar knee joint effusion is suggested. No fracture or dislocation, periosteal reaction or bone destruction, radiopaque intra-articular loose body or chondrocalcinosis is evident. 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 T IMPRESSION: Tricompartment osteoarthritis, most severe at the medial compartmen t with [id number] Mild knee joint effusion
--- NOTE | ~2023-02-28 | XR_ITS ---
XR knee LT min 4V DATE: 02/28/2023 15:39 INDICATION: Bilateral knee joint pain TECHNIQUE: 4 views COMPARISON: None FINDINGS: There is loss of medial prominent joint space with [id number], periarticular spurring at the medial and patellofemoral compartments and slightly at the lateral tibial plateau. No fracture or dislocation or joint effusion. No periosteal reaction or bone destruction. No radiopaq ue intra-articular loose body or chondrocalcinosis.. 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 [facility] IMPRESSION: Tricompartment osteoarthritis, most severe at the medial compartmen t with [id number]
== END ==
PROVIDERS: PCP Internal Medicine; Visit Provider Internal Medicine
DX: M17.0 Bilateral primary osteoarthritis of knee (principal); M25.461 Effusion, right knee
CPT/HCPCS: 73564

== ENCOUNTER 2024-10-08 10:54 | Outpatient (CLI) | payer OTHER, SELFPAY ==
--- NOTE | ~2024-10-08 | XR_ITS ---
Lumbosacral Spine: AP and lateral views Clinical History: Pain Findings: The normal lordotic curve is maintained. The vertebral bodies and posterior elements are i ntact. The intervertebral disc spaces are preserved. There are anterior osteophytes, compatible with DISH. There is mild to moderate facet arthropathy. The sacroiliac joints are normally outlined. Impression: [id number] degenerative spondylosis, as above. Reviewed, dictated and finalized at location M. Impression: [id number] degenerative spondylosis, as above.
== END 2024-10-08 10:55 | disposition home or self-care (01) ==
LOC: MICIMG 10:55
PROVIDERS: PCP Internal Medicine; Visit Provider Internal Medicine
DX: M47.816 Spondylosis without myelopathy or radiculopathy, lumbar region (principal)
CPT/HCPCS: 72100